=== PATIENT | male | born 1940 | race Caucasian/White ===

== ENCOUNTER 2017-03-12 08:50 | Day surgery (SDC) | payer OTHER ==
--- NOTE | 2017-03-11 15:12 | HP ---
- Patient Scheduled date of Surgery: 03/12/17 Scheduled Surgical Procedure: Phacoemulsification and cataract extraction with PCIOL Affected Eye: Right Chief Complaint (Indication for surgery): Decreased vision affecting ADLs - Ocular History Other Eye History: Other (pingueculum) Eye Medications: vigamox Previous Eye Surgery: none - Medical History Illnesses: Hypertension, Other (BPH) Current Medications: Lisinopril Toprol xl Proscar Doxyzosyn Allergies/Adverse Reactions: Allergies Allergy/AdvReac Type Severity Reaction Status Date / Time No Known Allergies Allergy Verified 03/11/17 15:09 Ocular Examination - Best Corrected Visual Acuity Distance: Right eye: 20/200 Distance: Left eye: 20/60 - External/Slit Lamp Examination Abnormalities: pingueculum, band K - Intraocular Pressure Intraocular Pressure - Right eye: 12 Intraocular Pressure-Left eye: 12 - Lens Lens: 3+ NS, 3+ PSC superonasal to central - Vitreous/Retina Vitreous/Retina: C:D 0.2 m/v/p wnl - Special Examination M - Right eye: -0.50-0.75 x 075 M - Left eye: +1.00-0.25 x 095 K - Right eye: 44.5/44/5 K - Left eye: 44.0/44.5 x 164 AL - Right eye: 23.93 AL - Left eye: 24.21 IOL bag: +18.0 d hoya 251 IOL sulcus: +17.5 d hoya 231 IOL AC: +15.0d MTA 4uo - Impression Impression: Cataract Right Eye - Plan Plan: Phacoemulsification and cataract extraction - IOL Right eye (1:10,000 epi) Post-hospital care will be provided in office on: 03/13/17
--- NOTE | 2017-03-11 15:21 | HP ---
History & Physical Update - History History: No Change - Physical Physical: No Change - Assessment Assessment: No Change - Plan Plan: No Change
[2017-03-11 17:33] VITALS: BMI 19.8
[~2017-03-12 08:50] MED LIST: ACETAMINOPHEN 325 MG TABLET (FP) PO PRN; CHONDROITIN SU A/HYALUR SOD 1 KIT IO ONE; CIPROFLOXACIN HCL 0.3% OPHTH 2.5ML BOTTLE OP SCH; DICLOFENAC SODIUM 0.1% OPHTHALMIC 2.5ML BOTTLE OP SCH; PHENYLEPHRINE 2.5% OPHTH SOLN 15 ML BOTTLE OP SCH; TOBRAMYCIN/DEXAMETHASONE OPHTH. OINTMENT 1 TUBE TP ONE; TROPICAMIDE 1% OPHTH SOLN 15 ML BOTTLE OP SCH
[2017-03-12] MEDS: TROPICAMIDE 1% OPHTH SOLN 15 ML BOTTLE ONE ×3 (09:30→09:44)
[2017-03-12] MEDS: PHENYLEPHRINE 2.5% OPHTH SOLN 15 ML BOTTLE ONE ×3 (09:30→09:44)
[2017-03-12] MEDS: CIPROFLOXACIN 0.3% EYE DROPS 5 ML BOTTLE ONE ×3 (09:30→09:43)
[2017-03-12] MEDS: DICLOFENAC SODIUM 0.1% OPHTHALMIC 2.5ML BOTTLE ONE ×3 (09:30→09:43)
[2017-03-12] MEDS ORDERED: TOBRAMYCIN/DEXAMETHASONE OPHTH. OINTMENT 1 TUBE ONE (10:40)
[2017-03-12] MEDS ORDERED: EPINEPHrine/PF 1 MG/1 ML (1:1,000) AMPULE ONE (10:40)
[2017-03-12] MEDS ORDERED: BSS (NA/CA/MG/K) BALANCED SALT SOLUTION OPHTH SOLN 15 ML BOTTLE ONE (10:40)
[2017-03-12] MEDS ORDERED: LIDOCAINE HCL/PF 1% SDV 5ML VIAL ONE (10:40)
[2017-03-12] MEDS ORDERED: LIDOCAINE HCL 2% JELLY (5 ML/TUBE) TP ONE (10:42)
[2017-03-12] MEDS ORDERED: MIDAZOLAM HCL 2 MG/2 ML SINGLE DOSE VIAL ONE (10:51)
[2017-03-12] MEDS ORDERED: LIDOCAINE HCL 1% PRESERVATIVE FREE - 30ML VIAL IO ONE (11:03)
[2017-03-12] MEDS ORDERED: CHONDROITIN/NA HYALURONATE 0.5 ML DISP.SYRIN IO ONE (11:04)
[2017-03-12] MEDS ORDERED: CHONDROITIN SU A/HYALUR SOD 1 KIT IO ONE (11:27)
[2017-03-12] MEDS ORDERED: ACETYLCHOLINE 1:100 INTRA-OCUL 20 MG/2 ML KIT IO ONE (11:32)
[2017-03-12] MEDS ORDERED: TOBRAMYCIN/DEXAMETHASONE OPHTH. OINTMENT 1 TUBE TP ONE (11:39)
--- NOTE | 2017-03-12 11:47 | OP ---
Ophthalmology Operative Note Pre-Operative Diagnosis: Cataract Affected Eye: Right Operation: Phacoemulsification and cataract extraction with PCIOL Findings: cataract od Post-Operative Diagnosis: Same as Pre-op Tube Room Supervisor: None Anesthesiologist: Janine Witt Anesthesia: Topical Specimens Removed: none Estimated blood loss: none Drains & Tubes with Location: none Operative Report Dictated: No
[2017-03-12 13:03] VITALS: TEMP 97.8
[2017-03-12 13:11] VITALS: BP 142/71; PULSE 57
--- NOTE | 2017-03-12 13:46 | OP ---
DATE OF OPERATION: DATE OF DICTATION: 03/12/2017 PREOPERATIVE DIAGNOSIS: Cataract, right eye. POSTOPERATIVE DIAGNOSIS: Cataract, right eye. PROCEDURES: Phacoemulsification and cataract extraction with insertion of posterior chamber intraocular lens. SURGEON: April Steiner MD THERMODYNAMICS TEACHER: None. ANESTHESIA: Topical. ANESTHESIOLOGIST: Janine Witt CRNA OPERATIVE PROCEDURE: The patient received viscous lidocaine jelly and then was brought to the operating room and prepped and draped in the usual sterile fashion so as to expose only the right eye. Ophthalmic Betadine was instilled into the inferior fornix and then lashes were taped out of the surgical field. An eyelid speculum was placed into the right eye. A paracentesis was made in superior clear cornea at the limbus. Non-preserved lidocaine 0.5 mL was injected into the anterior chamber and 1 mL of dilute epinephrine 1:10,000 was injected into the anterior chamber to improve pupillary dilation. Viscoelastic material was instilled into the anterior chamber via the paracentesis and a 2.4-mm keratome was then used to create the main incision in temporal clear cornea at the limbus. A continuous curvilinear capsulorrhexis was performed using a cystitome and Utrata forceps. Hydrodissection of the lens cortex was performed using BSS on a cannula until the nucleus was noted to be freely rotating. The phacoemulsification tip was then inserted via the main wound and used to sculpt 2 perpendicular grooves into lens nucleus. Nucleus was cracked into 4 quadrants. Using 2 instruments, each quadrant was lifted out of the capsule, into the iris plane and individually phacoemulsified. The remaining cortical material was then aspirated using the irrigation and aspiration port. The extent of the capsulorhexis could not be seen inferiorly. Therefore, the ciliary sulcus was filled with Provisc and a preloaded Hoya lens model 231 power +17.5 diopters was injected into the ciliary sulcus and centered using a Sinskey hook. The residual viscoelastic material was removed from the anterior chamber using irrigation and aspiration. The wound edges were hydrated using BSS. The wound was tested for leakage. It was found to be watertight. A small amount of Miochol was placed in the eye to constrict the pupil to assure that the lens was posterior to the iris. TobraDex ointment was placed in the eye, the speculum was removed from the eye and the eyelid was closed. A sterile dressing and shield were placed over the eye, and the patient was transferred to the recovery room in stable condition. Told to follow up in 1 day. APRIL STEINER M.D. [id number]
== END 2017-03-12 13:00 | disposition home or self-care (01) ==
LOC: JASU-SURG 08:50
PROVIDERS: ATTEND Ophthalmology
PROC: 08RJ3JZ Replacement of Right Lens with Synthetic Substitute, Percutaneous Approach (ICD-10-PCS; principal; 2017-03-12 10:30)
DX: H26.9 Unspecified cataract (principal)